=== PATIENT | female | born 1975 | race American Indian/Alaskan Native ===

== ENCOUNTER 2017-08-05 06:07 | Emergency (ER) | payer OTHER ==
[2017-08-05] MEDS ORDERED: MOTRIN PO ONE (06:44)
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
[2017-08-05 07:41] VITALS: BP 156/94
== END 2017-08-05 08:13 | disposition home or self-care (01) ==
LOC: ED 06:07
DX: S13.4XXA Sprain of ligaments of cervical spine, initial encounter (principal); E11.9 Type 2 diabetes mellitus without complications; I10 Essential (primary) hypertension; K21.9 Gastro-esophageal reflux disease without esophagitis; J45.909 Unspecified asthma, uncomplicated; V49.49XA Driver injured in collision with other motor vehicles in traffic accident, initial encounter; Y93.89 Activity, other specified; Y92.89 Other specified places as the place of occurrence of the external cause; Y99.8 Other external cause status
CPT/HCPCS: 99282

== ENCOUNTER 2017-09-07 18:05 | Emergency (ER) | payer OTHER ==
[2017-09-07] MEDS ORDERED: CATAPRES PO ONE (19:33)
--- NOTE | 2017-09-07 19:39 | Emergency Department Report ---
Chief Complaint: Dyspnea/Respdistress Stated Complaint: FLU LIKE SYMPTOMS Time Seen by Provider: 09/07/17 19:29 - HPI History of Present Illness: This is a 41-year-old [place] female who is presenting with cough cold congestion for the past week. Patient states she has had a cough productive of yellow sputum as well as facial pain and yellow drainage from the nose. Patient states that she has not had a fever no nausea vomiting no diarrhea no body aches and she has had mild sore throat but is able to swallow and talk normally. - ROS Review of Systems: Review of systems negative except for those systems in the HPI - Exam Vital Signs: Vital Signs 09/07/17 18:10 Temperature 98.2 F Pulse Rate 91 H Respiratory 18 Rate Blood Pressure 177/109 O2 Sat by Pulse 99 Oximetry Physical Exam: Focused physical exam patient has no acute distress A and O 3 on general exam HEENT oropharynx is clear sinus tenderness in the maxillary sinuses lungs clear to auscultation heart tones are normal abdomen soft nontender obese MSE screening note: Focused history and physical exam performed. Due to findings the following was ordered: ED Medical Decision Making - Medical Decision Making Patient has been taking [id number] cough medicine which may have elevated her blood pressure patient is nondiabetic patient be started on Z-Prasanth as well as prednisone and cough medicine and be discharged home thank ED Disposition for MSE Clinical Impression: Sinusitis, acute, Upper respiratory infection Disposition: DC-01 TO HOME OR SELFCARE Is pt being admited?: No Does the pt Need Aspirin: No Condition: Fair Instructions: Upper Respiratory Infection (ED), Sinusitis (ED) Prescriptions: ALBUTEROL Inhaler [ProAir HFA Inhaler] 2 puff IH QID PRN #1 inhalation PRN Reason: Shortness Of Breath Azithromycin [Zithromax Z-PRASANTH] 250 mg PO DAILY #6 tablet Benzonatate [Tessalon Perles] 100 mg PO Q8HR #10 capsule Referrals: KALEE CORDON MD [Primary Care Provider] - 3-5 Days
[2017-09-07 19:50] VITALS: BP 144/88
== END 2017-09-07 19:53 | disposition home or self-care (01) ==
LOC: ED 18:05
DX: J01.00 Acute maxillary sinusitis, unspecified (principal); J06.9 Acute upper respiratory infection, unspecified
CPT/HCPCS: 93005; 93010; 99282